=== PATIENT | female | born 1965 | race Caucasian/White ===

== ENCOUNTER → 2021-02-26 09:44 | Outpatient (BNVA) | payer OTHER, SELFPAY | PROVIDERS: Family Provider Nurse Practitioner Family; PCP Obstetrics & Gynecology; Visit Provider Nurse Practitioner Family | DX: I10 Essential (primary) hypertension (principal); E78.5 Hyperlipidemia, unspecified; R53.83 Other fatigue | CPT/HCPCS: 80053; 80061; 84443 ==

== ENCOUNTER → 2022-01-21 09:24 | Outpatient (BNVA) | payer OTHER, SELFPAY | PROVIDERS: Family Provider Nurse Practitioner Family; PCP Nurse Practitioner Family; Visit Provider Nurse Practitioner Family | DX: I10 Essential (primary) hypertension (principal) | CPT/HCPCS: 80053; 80061 ==

== ENCOUNTER → 2024-01-10 09:39 | Outpatient (BNVA) | payer OTHER, SELFPAY | PROVIDERS: Family Provider Nurse Practitioner Family; PCP Nurse Practitioner Family; Visit Provider Nurse Practitioner Family | DX: I10 Essential (primary) hypertension (principal); R53.83 Other fatigue | CPT/HCPCS: 80053; 80061; 84439; 84443; 85025 ==

== ENCOUNTER 2024-02-07 16:11 | Outpatient (CLI) | payer OTHER, SELFPAY ==
--- NOTE | 2024-02-07 16:45 | US_ITS ---
WS: [id number] THYROID ULTRASOUND HISTORY: E03.9 - Hypothyroidism, unspecified COMPARISON: None available. Right lobe: 1.4 cm x 2.0 cm x 4.1 cm (w x ap x l). Volume: 5.5 cm3. Heterogeneous slightly lobulated thyroid lobe. Mild increased vascularity. No mass or nodules. No david cifications. Left lobe: 1.3 cm x 1.5 cm x 3.6 cm (w x ap x l). Volume: 3.4 cm3. Mildly heterogeneous gland. Slightly lobulated contours. No mass or calcifications. Isthmus: 0.4 cm. US/US thyroid [id number] IMPRESSION: Slightly lobulated and heterogeneous thyroid. No mass or nodules.
== END 2024-02-07 16:12 | disposition home or self-care (01) ==
LOC: RAD 16:12
PROVIDERS: Family Provider Nurse Practitioner Family; PCP Nurse Practitioner Family; Visit Provider Nurse Practitioner Family
DX: E03.9 Hypothyroidism, unspecified (principal)
CPT/HCPCS: 76536

== ENCOUNTER → 2024-05-01 15:00 | Outpatient (BNVA) | payer BC, SELFPAY | PROVIDERS: Family Provider Nurse Practitioner Family; PCP Nurse Practitioner Family; Visit Provider Nurse Practitioner Family | DX: E03.9 Hypothyroidism, unspecified (principal) | CPT/HCPCS: 84443 ==